=== PATIENT | female | born 1955 | race Caucasian/White ===

== ENCOUNTER → 2021-07-05 | Day surgery (SDC) | payer BC, MEDICARE ==
[~2021-07-05] MED LIST: Lactated Ringers 1,000 ML IV PRN; Midazolam 1 MG/ML 2 ML SDV IV ONE; Sodium Chloride 0.9% 10 ML Syringe FLUSH PRN; fentaNYL 100 MCG/2 ML SDV IV ONE
[2021-07-05] MEDS: acetaZOLAMIDE 500 MG Cap.ER PO ONE (10:12)
[2021-07-06 15:40] VITALS: BP 136/89; PULSE 73
== END ==
LOC: FB.SDS 08:11
PROVIDERS: ATTEND Ophthalmology
DX: H25.813 Combined forms of age-related cataract, bilateral (principal); H01.001 Unspecified blepharitis right upper eyelid; H01.004 Unspecified blepharitis left upper eyelid; H04.123 Dry eye syndrome of bilateral lacrimal glands; H52.223 Regular astigmatism, bilateral; N18.31 Chronic kidney disease, stage 3a; E78.2 Mixed hyperlipidemia; E03.9 Hypothyroidism, unspecified; Z98.890 Other specified postprocedural states; Z79.890 Hormone replacement therapy; Z79.899 Other long term (current) drug therapy; Z88.2 Allergy status to sulfonamides; R03.0 Elevated blood-pressure reading, without diagnosis of hypertension; R05.9 Cough, unspecified; R74.8 Abnormal levels of other serum enzymes; Z20.822 Contact with and (suspected) exposure to COVID-19; G47.00 Insomnia, unspecified
CPT/HCPCS: 00142-QZ; A9270-GY; J2250; J3010; V2632

== ENCOUNTER 2021-07-19 07:11 | Day surgery (SDC) | payer MEDICARE ==
[~2021-07-19 07:11] MED LIST changes: -Midazolam 1 MG/ML 2 ML SDV IV ONE; -fentaNYL 100 MCG/2 ML SDV IV ONE
[2021-07-19] MEDS ORDERED: fentaNYL 100 MCG/2 ML SDV IV ONE (07:12)
[2021-07-19] MEDS ORDERED: Midazolam 1 MG/ML 2 ML SDV IV ONE (07:12)
[2021-07-19] MEDS ORDERED: acetaZOLAMIDE 500 MG Cap.ER PO ONE (09:30)
[2021-07-19 15:50] VITALS: BP 127/81; PULSE 60
== END 2021-07-19 09:45 | disposition home or self-care (01) ==
LOC: FB.SDS 07:11
PROVIDERS: ATTEND Ophthalmology
DX: H25.813 Combined forms of age-related cataract, bilateral (principal); H01.001 Unspecified blepharitis right upper eyelid; H01.004 Unspecified blepharitis left upper eyelid; H04.123 Dry eye syndrome of bilateral lacrimal glands; H52.223 Regular astigmatism, bilateral; E78.2 Mixed hyperlipidemia; I12.9 Hypertensive chronic kidney disease with stage 1 through stage 4 chronic kidney disease, or unspecified chronic kidney disease; E03.9 Hypothyroidism, unspecified; N18.31 Chronic kidney disease, stage 3a; G47.00 Insomnia, unspecified; R74.8 Abnormal levels of other serum enzymes; R05.9 Cough, unspecified; Z88.2 Allergy status to sulfonamides; Z79.890 Hormone replacement therapy; Z79.899 Other long term (current) drug therapy
CPT/HCPCS: 00142-QZ; A9270-GY; J2250; J3010; V2632